=== PATIENT | male | born 1950 | race Caucasian/White ===

== ENCOUNTER 2016-10-29 23:52 | Observation (INO) | payer OTHER ==
[~2016-10-29] VITALS: Ht 177.8 cm; Wt 86.7 kg
[~2016-10-29 23:52] MED LIST: ACCUNEB1.25 MG/3 IH; ALBUTEROL SULF8.5 GM IH; ALBUTEROL1.25 MG/3 IH; AMARYL2 MG PO; ASPIR 8181 M1; ASPIR 8181 M1 PO; ASPIR-LOW81 MG PO; ATORVASTATIN CA40 MG PO; CLONAZEPAM0.5 MG PO; DEPAKOTE ER250 MG PO; DEPAKOTE ER500 MG PO; DEPAKOTE250 MG PO; DEPAKOTE500 MG PO; DESYREL100 MG PO; DILANTIN100 MG PO; DIVALPROEX SOD250 MG PO; DIVALPROEX SOD500 MG; ESCITALOPRAM OX10 MG PO; FLEXERIL5 MG PO; FUROSEMIDE20 MG PO; GABAPENTIN300 MG PO; GLIPIZIDE XL5 MG PO; GLUCOTROL5 MG PO; KLONOPIN0.5 M1 PO; LAMICTAL100 MG PO; LAMOTRIGINE100 MG PO; LANTUS 3 M100 UNITS1 SC; LASIX40 MG PO; LEVEMIR FL100 UNIT/1 SC; LINZESS145 MCG PO; LIPITOR20 MG PO; LIPITOR40 MG PO; LISINOPRIL20 MG PO; METOPROLOL SUCC25 MG PO; MIRALAX255 GM PO; MIRTAZAPINE30 MG PO; NAMENDA10 MG PO; NEURONTIN300 MG PO; NITROSTAT0.4 MG SL; NOVOLIN N100 UNITS/ SC; NOVOLOG 10100 UNITS/ SC; NOVOLOG PE100 UNITS/ SC; OMEPRAZOLE40 M1 PO; OMNARIS12.5 GM IH; PERCOCET 5/31 TABLET PO; PHENYTOIN SODI100 M1 PO; PHENYTOIN SODI200 MG PO; PRILOSEC20 MG PO; PRILOSEC40 MG PO; PRINIVIL20 MG PO; PROVENTIL,2.5 MG/3 M IH; REMERON30 M2 PO; ROXICET 5-3251 EACH PO; SERTRALINE HCL50 MG PO; SPIRIVA1 INHALATI IH; SYMBICORT60 INHALAT IH; TOPROL XL25 MG PO; TRAZODONE HCL100 MG PO; VITAMIN B-12500 MC2 PO; VITAMIN B12-FO1 EACH PO
[2016-10-30 01:17] LABS: HEMATOCRIT 38.7 % (38.0-50.0); MCH 28.8 PG (29.0-34.0); MCHC 34.1 G/DL (30.0-36.0); MCV 84.5 FL (86-99); MEAN PLAT.VOLUME 8.9 uM^3 (9.0-12.4); PLATELET COUNT 224 K/uL (156-360); RBC DIS.WIDTH-CV 12.8 % (11.8-14.6); RBC DIS.WIDTH-SD 39.1 % (39-53); RED BLOOD COUNT 4.58 M/uL (4.00-5.50)
[2016-10-30 01:26] LABS: PROTHROMBIN TIME 11.4 SEC (10.2-12.9)
[2016-10-30 01:28] LABS: D-DIMER ELISA < 150.00 ng/mLDDU (<230)
[2016-10-30 01:29] LABS: CHLORIDE 101 mEq/L (99-109); POTASSIUM 4.2 mEq/L (3.7-5.4); PTT 29.4 SEC (25-37)
[2016-10-30 01:30] LABS: SODIUM 136 mEq/L (136-147)
[2016-10-30 01:31] LABS: GLUCOSE 161 mg/dL (70-99)
[2016-10-30 01:33] LABS: ANION GAP 12 MEQ/L (2-14)
[2016-10-30 01:35] LABS: GFR ESTIMATE (CALCULATED) 54 mL/min/
[2016-10-30 01:36] LABS: UREA NITROGEN (BUN) 21 mg/dL (9-23)
[2016-10-30 01:40] LABS: TROP-I INTERPRETATION NEGATIVE; TROPONIN-I < 0.01 ng/mL (0.0-0.30)
[2016-10-30] MEDS ORDERED: KLONOPIN0.5 M1 PO (01:43)
[2016-10-30] MEDS ORDERED: LOW DOSE ASPIRI81 M1 PO (01:43)
[2016-10-30] MEDS ORDERED: LIPITOR20 MG PO (01:43)
[2016-10-30] MEDS ORDERED: LASIX20 MG PO (01:44)
[2016-10-30] MEDS ORDERED: FLEXERIL5 MG PO (01:44)
[2016-10-30] MEDS ORDERED: AMARYL4 MG PO (01:44)
[2016-10-30] MEDS ORDERED: PRINIVIL20 MG PO (01:45)
[2016-10-30] MEDS ORDERED: LAMICTAL100 MG PO (01:45)
[2016-10-30] MEDS ORDERED: DEPAKOTE ER500 MG PO (01:45)
[2016-10-30] MEDS ORDERED: TOPROL XL25 MG PO (01:46)
[2016-10-30] MEDS ORDERED: OMEPRAZOLE40 M1 PO (01:46)
[2016-10-30] MEDS ORDERED: MIRALAX17 GM PO (01:46)
[2016-10-30] MEDS ORDERED: SYMBICORT60 INHALAT IH (01:46)
[2016-10-30] MEDS ORDERED: REMERON45 MG PO (01:46)
[2016-10-30] MEDS ORDERED: DESYREL100 MG PO (01:47)
[2016-10-30] MEDS ORDERED: SPIRIVA RESPIMAT4 GM IH (01:47)
[2016-10-30] MEDS ORDERED: ZOLOFT50 MG PO (01:47)
[2016-10-30 05:43] VITALS: BP 102/62
[2016-10-30 07:40] VITALS: BP 99/59
[2016-10-30 11:30] VITALS: BP 111/62
[2016-10-30 13:29] LABS: TROP-I INTERPRETATION NEGATIVE; TROPONIN-I < 0.01 ng/mL (0.0-0.30)
[2016-10-30] MEDS ORDERED: NITROSTAT0.4 MG SL (13:56)
[2016-10-30 14:59] LABS: ANION GAP 9 MEQ/L (2-14); CHLORIDE 102 MEQ/L (99-109); GFR ESTIMATE (CALCULATED) > 59 mL/min/; GLUCOSE 202 mg/dL (70-99); POTASSIUM 4.3 MEQ/L (3.7-5.4); SAMPLE HEMOLYSIS CHECK 0; SAMPLE ICTERIC CHECK 0; SAMPLE LIPEMIA CHECK 0; SODIUM 138 MEQ/L (136-147); UREA NITROGEN (BUN) 18 mg/dL (9-23)
== END 2016-10-30 16:29 | disposition home or self-care (01) ==
LOC: EME 23:52 → EDOF 10-30 02:53 → 5WEST 10-30 02:53
PROVIDERS: Emergency Medicine; Hospitalist
DX: R07.2 Precordial pain (principal); J44.9 Chronic obstructive pulmonary disease, unspecified; I13.0 Hypertensive heart and chronic kidney disease with heart failure and stage 1 through stage 4 chronic kidney disease, or unspecified chronic kidney disease; I50.9 Heart failure, unspecified; E11.22 Type 2 diabetes mellitus with diabetic chronic kidney disease; N18.3 Chronic kidney disease, stage 3 (moderate); Z99.81 Dependence on supplemental oxygen; E78.5 Hyperlipidemia, unspecified; G30.9 Alzheimer's disease, unspecified; F02.80 Dementia in other diseases classified elsewhere, unspecified severity, without behavioral disturbance, psychotic disturbance, mood disturbance, and anxiety; I25.10 Atherosclerotic heart disease of native coronary artery without angina pectoris; F17.200 Nicotine dependence, unspecified, uncomplicated; J96.10 Chronic respiratory failure, unspecified whether with hypoxia or hypercapnia; E11.65 Type 2 diabetes mellitus with hyperglycemia; E86.0 Dehydration; I95.9 Hypotension, unspecified; F31.30 Bipolar disorder, current episode depressed, mild or moderate severity, unspecified; N17.9 Acute kidney failure, unspecified; I73.9 Peripheral vascular disease, unspecified
CPT/HCPCS: 70450; 71020; 80048; 80048 91; 83880; 84484; 85027; 85379; 85610; 85730; 93005; 94640; 94760; 94799; 99281; 99285; G0378; J1650; J2270; J3010; J7030

== ENCOUNTER → 2017-06-17 | Outpatient (CLI) | payer OTHER ==
[~2017-06-17] MED LIST changes: +AMARYL4 MG PO; +LASIX20 MG PO; +LOW DOSE ASPIRI81 M1 PO; +MIRALAX17 GM PO; +REMERON45 MG PO; +SPIRIVA RESPIMAT4 GM IH; +ZOLOFT50 MG PO
== END | disposition home or self-care (01) ==
DX: R13.13 Dysphagia, pharyngeal phase (principal); K21.9 Gastro-esophageal reflux disease without esophagitis; J44.9 Chronic obstructive pulmonary disease, unspecified; K22.70 Barrett's esophagus without dysplasia; Z87.01 Personal history of pneumonia (recurrent)
CPT/HCPCS: 92611 GN; G8996 GN; G8997 GN; G8998 GN

== ENCOUNTER 2017-11-08 01:08 | Inpatient (IN) | payer OTHER ==
[~2017-11-08] VITALS: Ht 177.8 cm; Wt 86.8 kg
[2017-11-08 02:24] LABS: HEMOGLOBIN 13.7 G/DL (12.5-16.6); MCH 28.8 PG (29.0-34.0); MCHC 34.3 G/DL (30.0-36.0); MCV 84.2 FL (86-99); NRBC (%) 0.5 /100 WBC (0-0); PLATELET COUNT 261 K/uL (156-360); RBC DIS.WIDTH-CV 12.9 % (11.8-14.6); RBC DIS.WIDTH-SD 39.4 % (39-53); RED BLOOD COUNT 4.75 M/uL (4.00-5.50); WHITE BLOOD COUNT 10.5 K/uL (4.1-10.2)
[2017-11-08 02:32] LABS: ALBUMIN 4.3 g/dL (3.2-4.8); CHLORIDE 101 mEq/L (99-109)
[2017-11-08 02:33] LABS: POTASSIUM 4.3 mEq/L (3.7-5.4); SODIUM 139 mEq/L (136-147)
[2017-11-08 02:35] LABS: GLUCOSE 109 mg/dL (70-99)
[2017-11-08 02:37] LABS: TOTAL BILIRUBIN 0.4 mg/dL (0.0-1.0)
[2017-11-08 02:37] LABS: AMPHETAMINE NEGATIVE (500 ng/mL); BARBITURATES NEGATIVE (200 ng/mL); BENZODIAZEPINES NEGATIVE (150 ng/mL); BUPRENORPHINE NEGATIVE (10 ng/mL); COCAINE NEGATIVE (150 ng/mL); METHADONE NEGATIVE (200 ng/mL); METHAMPHETAMINE NEGATIVE (500 ng/mL); OPIATES (MORPHINE) NEGATIVE (100 ng/mL); OXYCODONE NEGATIVE (100 ng/mL); PHENCYCLIDINE NEGATIVE (25 ng/mL); PROPOXYPHENE NEGATIVE (300 ng/mL); THC CANNABINOIDS NEGATIVE (50 ng/mL); TRICYCLIC ANTIDEPRESSANTS NEGATIVE (300 ng/mL)
[2017-11-08 02:38] LABS: ALKALINE PHOSPHATASE 80 IU/L (3-129); SERUM ETHYL ALCOHOL < 10 mg/dL
[2017-11-08 02:39] LABS: CREATININE 1.3 mg/dL (0.6-1.3); GFR ESTIMATE (CALCULATED) 59 mL/min/ (58.99-99999)
[2017-11-08 02:40] LABS: AST (GOT) 15 IU/L (2-34); UREA NITROGEN (BUN) 10 mg/dL (9-23)
[2017-11-08 02:41] LABS: ALT (GPT) 13 IU/L (3-49)
[2017-11-08 02:55] LABS: APPEARANCE CLEAR ((CLEAR)); BILIRUBIN NEGATIVE; BLOOD NEGATIVE; COLOR STRAW ((YELLOW)); GLUCOSE (STRIP) NEGATIVE; KETONES NEGATIVE; LEUKOCYTES NEGATIVE; NITRITE NEGATIVE; PROTEIN (STRIP) NEGATIVE; SPECIFIC GRAVITY 1.005 (1.000-1.030); UROBILINOGEN 0.2 MG/DL (0.2-1.0)
[2017-11-08] MEDS ORDERED: NEURONTIN100 MG PO (09:10)
[2017-11-08] MEDS ORDERED: AMARYL2 MG PO (09:11)
[2017-11-08] MEDS ORDERED: ZOLOFT100 MG PO (09:12)
[2017-11-08] MEDS ORDERED: GLUCOPHAGE XR,500 MG PO (09:13)
[2017-11-08] MEDS ORDERED: MOBIC15 MG PO (09:13)
[2017-11-08] MEDS ORDERED: ALEVE220 MG PO (09:14)
[2017-11-08 10:26] VITALS: BP 162/82
[2017-11-08 10:45] LABS: HEMOGLOBIN A1c (GLYCOHEMOGLOB) 6.4 % (Below 5.7)
[2017-11-08 16:04] VITALS: BP 160/74
[2017-11-09 07:47] VITALS: BP 127/67
[2017-11-09] MEDS ORDERED: SERTRALINE HCL100 MG PO (10:36)
[2017-11-09] MEDS ORDERED: DESYREL 150 MG150 MG PO (10:36)
[2017-11-09 13:00] LABS: UR CREATININE CONCENTRATION 192.3 MG/DL
== END 2017-11-09 11:45 | disposition home or self-care (01) | DRG 880 ==
LOC: EME 01:08 → 1WEST 08:20 → EDOF 08:20 → 1WEST 08:20 → ENRESERV 09:40 → 1WEST 10:09
PROVIDERS: Emergency Medicine; Psychiatry & Neurology Psychiatry
DX: F41.1 Generalized anxiety disorder (principal); F32.9 Major depressive disorder, single episode, unspecified; G30.9 Alzheimer's disease, unspecified; F02.80 Dementia in other diseases classified elsewhere, unspecified severity, without behavioral disturbance, psychotic disturbance, mood disturbance, and anxiety; E11.9 Type 2 diabetes mellitus without complications; G40.909 Epilepsy, unspecified, not intractable, without status epilepticus; E78.5 Hyperlipidemia, unspecified; I25.10 Atherosclerotic heart disease of native coronary artery without angina pectoris; F17.200 Nicotine dependence, unspecified, uncomplicated; R45.851 Suicidal ideations; Z86.73 Personal history of transient ischemic attack (TIA), and cerebral infarction without residual deficits; Z79.84 Long term (current) use of oral hypoglycemic drugs; Z79.82 Long term (current) use of aspirin; Z99.81 Dependence on supplemental oxygen
CPT/HCPCS: 80053; 81003; 82043; 82570; 82948; 83036; 85027; 90839; 99281; 99284; G0480